=== PATIENT | male | born 1975 | race Caucasian/White ===

== ENCOUNTER 2018-11-26 12:05 | Inpatient (IN) | payer MEDICAID, OTHER ==
[2018-11-26] MEDS ORDERED: LORazepam INJ* 2 MG/ML 1 ML VIAL ONE (12:42)
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
[2018-11-26 12:49] LABS: ABS Eosinophils 0.2 10^3/ul (0-0.6); ABS Lymphocytes 2.2 10^3/ul (1.0-4.8); ABS Monocytes 0.7 10^3/ul (0-0.8); ABS Neutrophils 4.2 10^3/ul (1.5-7.7); Eosinophil % 2.5 %; Hematocrit 43 % (42-52); Hemoglobin 14.8 g/dL (14.0-18.0); Lymphocyte % 29.8 %; Mean Corpuscular HGB Conc 34 g/dL (31-36); Mean Corpuscular Hemoglobin 30 pg (27-31); Mean Corpuscular Volume 89 fL (80-94); Mean Platelet Volume 8.1 fL (7.4-10.4); Nucleated Red Blood Cells % 0.1; Platelet Count 259 10^3/uL (150-450); Red Blood Count 4.86 10^6 /uL (4.18-5.48); Red Cell Distribution Width 13 % (10-15); White Blood Count 7.3 10^3/uL (3.5-10.8)
[2018-11-26 13:01] LABS: ALT 26 U/L (7-52); AST 28 U/L (13-39); Albumin 4.9 g/dL (3.2-5.2); Albumin/Globulin Ratio 1.6 (1-3); Alkaline Phosphatase 73 U/L (34-104); Anion Gap 7 mmol/L (2-11); BUN/Creatinine Ratio 12.3 (8-20); Blood Urea Nitrogen 14 mg/dL (6-24); CO2 Carbon Dioxide 27 mmol/L (22-32); Calcium 9.4 mg/dL (8.6-10.3); Chloride 103 mmol/L (101-111); EGFR African American 84.4 (>60); EGFR Non-African American 69.8 (>60); Globulin 3.1 g/dL (2-4); Glucose 93 mg/dL (70-100); Potassium 3.4 mmol/L (3.5-5.0); Sodium 137 mmol/L (135-145)
[2018-11-26] MEDS ORDERED: LORazepam TAB(*) 1 MG PO ONE ×2 (13:09→16:44)
[2018-11-26 13:20] LABS: Acetaminophen < 15 mcg/mL; Alcohol < 10 mg/dL (<10); Salicylate < 2.50 mg/dL (<30)
[2018-11-26 13:34] LABS: TSH (Thyroid Stimulating Horm) 1.18 mcIU/mL (0.34-5.60)
--- NOTE | 2018-11-26 13:54 | PN ---
ED Psychiatric Progress Note Date of Service: 11/26/18 Subjective: This is a 43 year-old M who is pending admission to [facility] / transfer to another psychiatric facility / discharge to home / or being observed secondary to suicidal ideation, recent attempt to self hang and inability to contract for safety. Pt says he did hang himself "almost 72 hours ago." Objective: Alert, oriented, minimally cooperative, restless, disphoric mood, irritable affect. He endorses SI and he does not contract for safey. He denies HI or bA/ VH. Assessment: Patient is unsafe for discharge at the current time. Plan: Pending psychiatric transfer / admit / discharge will follow up daily. Vital Signs Temp Pulse Resp BP Pulse Ox 98.9 F 99 19 133/92 99 11/26/18 12:06 11/26/18 12:06 11/26/18 13:18 11/26/18 12:06 11/26/18 12:06 Lab Results - Entire Visit 11/26/18 11/26/18 12:26 12:26 WBC 7.3 RBC 4.86 Hgb 14.8 Hct 43 MCV 89 MCH 30 MCHC 34 RDW 13 Plt Count 259 MPV 8.1 Neut % (Auto) 57.3 Lymph % (Auto) 29.8 [place] % (Auto) 9.9 Eos % (Auto) 2.5 Baso % (Auto) 0.5 Absolute Neuts (auto) 4.2 Absolute Lymphs (auto) 2.2 Absolute Monos (auto) 0.7 Absolute Eos (auto) 0.2 Absolute Basos (auto) 0.0 Absolute Nucleated RBC 0.0 Nucleated RBC % 0.1 Sodium 137 Potassium 3.4 L Chloride 103 Carbon Dioxide 27 Anion Gap 7 BUN 14 Creatinine 1.14 Est GFR ( Amer) 84.4 Est GFR (Non-Af Amer) 69.8 BUN/Creatinine Ratio 12.3 Glucose 93 Calcium 9.4 Total Bilirubin 0.60 AST 28 ALT 26 Alkaline Phosphatase 73 Total Protein 8.0 Albumin 4.9 Globulin 3.1 Albumin/Globulin Ratio 1.6 TSH 1.18 Salicylates < 2.50 Acetaminophen < 15 Serum Alcohol < 10
[2018-11-26] MEDS ORDERED: diPHENhydraMINE PO* 50 MG PO ONE (16:35)
[2018-11-26] MEDS ORDERED: Haloperidol TAB* 5 MG PO ONE (16:35)
--- NOTE | 2018-11-26 19:06 | ED ---
Progress - Progress Note Progress Note: The patient is a sign-out from Dr. Anshul Romero MD, to Dr. Kashmir Ortiz MD, at change of shift at 1900 on 11/26/2018, pending transfer to [facility] for mental health treatment. Ativan and Haldol ordered as pt is becoming aggressive and agitated in the ED. The patient is a sign-out from Dr. Kashmir Ortiz MD, to Dr. Sushant Valencia MD, at change of shift at 0700 on 11/27/2018, pending transfer. Re-Evaluation - Re-Evaluation First Eval Re-Evaluation Time: 20:30 Comment: Pt aggressive in ED. Will order Haldol and Ativan. Course/Dx - Course Course Of Treatment: The patient is a sign-out from Dr. Anshul Romero MD, to Dr. Kashmir Ortiz MD, at change of shift at 1900 on 11/26/2018, pending transfer to [facility] for mental health treatment. Ativan and Haldol ordered as pt is becoming aggressive in the ED. Pt also administered Zyprexa. The patient is a sign-out from Dr. Kashmir Ortiz MD, to Dr. Sushant Valencia MD, at change of shift at 0700 on 11/27/2018, pending transfer. - Diagnoses Provider Diagnoses: Depression, Suicidal ideation Discharge ED - Sign-Out/Discharge Documenting (check all that apply): Receiving Sign-Out Signing out patient TO: Sushant Valencia - Patient is a sign-out to Dr. Sushant Valencia MD, at 0700 on 11/27/2018, pending transfer. Receiving patient FROM: Anshul Romero - Patient is a sign-out from Dr. Anshul Romero MD, at 1900 on 11/26/2018, pending transfer to [facility] for mental health treatment. Patient Received Moderate/Deep Sedation with Procedure: No - Discharge Plan Condition: Stable Disposition: PSYCHIATRIC FACILITY-[facility] [place] - Billing Disposition and Condition Condition: STABLE Disposition: Psychiatric Facility [facility] [place] - Attestation Statements Document Initiated by Scribe: Yes Documenting Scribe: Mandy Nunn Provider For Whom Scribe is Documenting (Include Credential): Dr. Kashmir Ortiz MD Scribe Attestation: Mandy Poe, scribed for Dr. Kashmir Ortiz MD on 11/27/18 at 1824. Scribe Documentation Reviewed: Yes Provider Attestation: The documentation as recorded by the scribe, Mandy Nunn accurately reflects the service I personally performed and the decisions made by me, Dr. Kashmir Ortiz MD Status of Gerber Document: Viewed
[2018-11-26] MEDS ORDERED: Haloperidol INJ IV/IM* 5 MG/ML AMP IM ONE (20:31)
[2018-11-26] MEDS ORDERED: LORazepam INJ* 2 MG/ML 1 ML VIAL IM ONE (20:31)
[2018-11-27] MEDS ORDERED: OLANzapine TAB*ODT* 10 MG TAB PO ONE (02:22)
--- NOTE | 2018-11-27 07:26 | ED ---
Progress - Progress Note Progress Note: The patient is a sign-out from Dr. Kashmir Ortiz MD, to Dr. Sushant Valencia MD, at change of shift at 0700 on 11/27/2018, pending transfer. - Consult/PCP Time Called: 12:50 Re-Evaluation - Re-Evaluation First Eval Re-Evaluation Time: 20:30 Course/Dx - Course Course Of Treatment: The patient is a sign-out from Dr. Kashmir Ortiz MD, to Dr. Sushant Valencia MD, at change of shift at 0700 on 11/27/2018, pending transfer. The pt is verbally aggressive as of 733. I reviewed the medical record and saw that the pt has received 2-3 oral doses of sedatives and antipsychotics over the course of his stay. I ordered a 5mg dose of Haldol, a 50mg dose of Benadryl, and a 2mg dose of Lorazepam. As of 1039, the pt will be involuntarily admitted to the [facility] with a dx of unspecified depression as per Dr. Zee. - Diagnoses Provider Diagnoses: Depression Discharge ED - Sign-Out/Discharge Documenting (check all that apply): Patient Departure, Receiving Sign-Out Receiving patient FROM: Kashmir Ortiz - Discharge Plan Condition: Stable Disposition: PSYCHIATRIC FACILITY-[facility] [place] Referrals: No Primary Care Phys,NOPCP [Primary Care Provider] - - Attestation Statements Document Initiated by Scribe: Yes Documenting Scribe: Johanny Hutson Provider For Whom Scribe is Documenting (Include Credential): Sushant Valencia MD. Scribe Attestation: Johanny Poe, scribed for Sushant Valencia MD. on 11/27/18 at 1043. Status of Scribe Document: Ready
[2018-11-27] MEDS ORDERED: Haloperidol TAB* 5 MG PO ONE (07:33)
[2018-11-27] MEDS ORDERED: LORazepam TAB(*) 1 MG PO ONE (07:33)
[2018-11-27] MEDS ORDERED: diPHENhydraMINE PO* 50 MG PO ONE (07:33)
--- NOTE | 2018-11-27 10:30 | PN ---
ED Psychiatric Progress Note Date of Service: 11/27/18 Subjective: This is ED day #1 for this 43 y.o. single, white male with no known mental health history who arrived after an episode of attempting to hang himself in a suicide attempt. He remains tearful and distraught, convinced that his girlfriend is cheating on him. He cannot contract for safety. Objective: Middle-aged white male laying in bed in ED; fairly well-groomed; depressed with constricted, irritable affect; endorses SI with plan to hang self Assessment: Unspecified Depressive DO Plan: Patient meets admission criteria but no beds currently on adult [facility]. Will transfer to appropriate [facility] receiving facility. Vital Signs Temp Pulse Resp BP Pulse Ox 97.1 F 86 20 125/77 99 11/27/18 07:38 11/27/18 07:38 11/27/18 08:00 11/27/18 07:38 11/27/18 07:38 Lab Results - Entire Visit 11/26/18 11/26/18 12:26 12:26 WBC 7.3 RBC 4.86 Hgb 14.8 Hct 43 MCV 89 MCH 30 MCHC 34 RDW 13 Plt Count 259 MPV 8.1 Neut % (Auto) 57.3 Lymph % (Auto) 29.8 [place] % (Auto) 9.9 Eos % (Auto) 2.5 Baso % (Auto) 0.5 Absolute Neuts (auto) 4.2 Absolute Lymphs (auto) 2.2 Absolute Monos (auto) 0.7 Absolute Eos (auto) 0.2 Absolute Basos (auto) 0.0 Absolute Nucleated RBC 0.0 Nucleated RBC % 0.1 Sodium 137 Potassium 3.4 L Chloride 103 Carbon Dioxide 27 Anion Gap 7 BUN 14 Creatinine 1.14 Est GFR ( Amer) 84.4 Est GFR (Non-Af Amer) 69.8 BUN/Creatinine Ratio 12.3 Glucose 93 Calcium 9.4 Total Bilirubin 0.60 AST 28 ALT 26 Alkaline Phosphatase 73 Total Protein 8.0 Albumin 4.9 Globulin 3.1 Albumin/Globulin Ratio 1.6 TSH 1.18 Salicylates < 2.50 Acetaminophen < 15 Serum Alcohol < 10
[2018-11-27] MEDS ORDERED: Al Hydrox/Mg Hydrox/Simet LIQ* 30 ML UDC PO PRN (10:43)
[2018-11-27] MEDS ORDERED: Acetaminophen TAB* 325 MG PO PRN (10:43)
[2018-11-27] MEDS ORDERED: hydrOXYzine HCL TAB* 50 MG PO PRN (10:44)
[2018-11-28] MEDS ORDERED: Nicotine* 4MG (FRUIT FLAVOR) GUM PO PRN (17:05)
[2018-11-28] MEDS ORDERED: chlorproMAZINE TAB* 100 MG PO PRN (17:06)
[2018-11-28] MEDS: Nicotine Patch Removal NOTE FOLLOW UP SCH (20:46)
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
[2018-11-29] MEDS: Sertraline* 50 MG TAB PO SCH (10:01)
[2018-11-29] MEDS: clonazePAM TAB(*) 0.5 MG PO PRN (10:01)
[2018-11-29] MEDS: Nicotine PATCH 21 MG/24 HR* PATCH TRANSDERM SCH (10:02)
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
[2018-11-29] MEDS: Nicotine Patch Removal NOTE FOLLOW UP SCH (21:05)
[2018-11-30 07:56] VITALS: BP 120/78
[2018-11-30 08:07] LABS: Urine Appearance Clear; Urine Bilirubin Negative (Negative); Urine Blood Negative (Negative); Urine Color Yellow; Urine Glucose Negative (Negative); Urine Ketones Negative (Negative); Urine Nitrite Negative (Negative); Urine Protein Negative (Negative); Urine Specific Gravity 1.018 (1.010-1.030); Urine Urobilinogen Negative (Negative)
[2018-11-30 08:23] LABS: Urine Benzodiazepine Screen None Detected (None Detect); Urine Opiates Screen None Detected (None Detect)
[2018-11-30] MEDS: clonazePAM TAB(*) 0.5 MG PO PRN (08:39)
[2018-11-30] MEDS: Sertraline* 50 MG TAB PO SCH (08:39)
[2018-11-30] MEDS: Nicotine PATCH 21 MG/24 HR* PATCH TRANSDERM SCH (10:43)
--- NOTE | 2018-11-30 11:13 | DCNOTE ---
Subjective - Subjective Service Types: 92017 [facility] Day Mgmt simple under 30 min Discharge Date: 11/30/18 Subjective: Patient reports intermittent muscular pain on torso and reports history of hernia. He denies SOB or CP. He denies N/V or GI distress. He states desire to follow up with a primary care provider "now that I have insurance." Patient denies SI or passive wish. He states he is willing to go to counseling at [facility] and be a part of a suicide prevention group through a local cohort. He is euthymic and conversational. He reports desire to be discharged soon in order to return to work. He states his girlfriend, Feliciano, asked him to join her in above suicide prevention group and this is comforting to him that she wants to be involved. He states she has agreed to pick him up today. ME Assessment - Assessment Clinical Impression: 43yo wm with history of remote psychiatric treatment and polysubstance use who presented to the ED via police s/p suicide attempt via hanging a few days prior. He denies SI or passive wish. He has started an SSRI and stabilized in this setting. Merits Inpatient Hospitalization: No Clear for Discharge: Adequate Clinical Respons, Acceptable Safety Profile, Low Utility of Inpt Care Inpatient DSM-V Dx: F43.12 Discharge Planning - Discharge Planning Discharge Plan: Outpatient Follow Up Outpatient Program: [facility] Recommendations for Continuing Care: Medication Management, Psychotherapy, Primary Care Followup Medications: Current Medications Hydroxyzine HCl (Atarax Tab*) 50 mg PO Q6H PRN PRN Reason: anxiety Sertraline HCl (Zoloft*) 50 mg PO DAILY [facility]ULI[facility] Last Admin: 11/30/18 08:39 Dose: 50 mg Discharge Planning: Prescriptions provided for discharge [x] Yes [] No Follow up care details as per social work arrangements: [facility] physician referral for primary care [facility] Suicide Prevention Cohort Patient response to discharge plan: [x] eager for discharge [x] agreeable with discharge plan [] ambivalent about discharge [] disagrees with discharge today
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
== END 2018-11-30 13:03 | disposition home or self-care (01) | DRG 755 ==
LOC: ED 12:05 → BSU 11-27 10:43
PROVIDERS: ADMIT Psychiatry & Neurology Psychiatry; ATTEND Psychiatry & Neurology Psychiatry
DX: F43.12 Post-traumatic stress disorder, chronic (principal); F33.1 Major depressive disorder, recurrent, moderate; F17.210 Nicotine dependence, cigarettes, uncomplicated; T14.91XA Suicide attempt, initial encounter; X83.8XXA Intentional self-harm by other specified means, initial encounter; Y92.008 Other place in unspecified non-institutional (private) residence as the place of occurrence of the external cause
CPT/HCPCS: 36415; 71046; 80053; 80307; 80320; 80329; 81003; 84443; 85025; 99222; 99231; 99238; 99284; A9270-GY; G0480; J2060